=== PATIENT | male | born 1985 | race Caucasian/White ===

== ENCOUNTER 2019-08-27 13:34 | Emergency (ER) | payer OTHER ==
[2019-08-27] MEDS ORDERED: Baclofen 10 MG Tab PO ONE (14:07)
[2019-08-27] MEDS ORDERED: Acetaminophen 500 MG Tab PO ONE (14:07)
[2019-08-27] MEDS ORDERED: Cyclobenzaprine 10 MG Tab PO ONE (14:11)
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
== END 2019-08-27 15:12 | disposition home or self-care (01) ==
LOC: EDSEX → FB.ED 13:34
DX: S00.81XA Abrasion of other part of head, initial encounter (principal); S60.512A Abrasion of left hand, initial encounter; S40.211A Abrasion of right shoulder, initial encounter; S40.812A Abrasion of left upper arm, initial encounter; M54.5 Low back pain; M54.6 Pain in thoracic spine; V43.61XA Car passenger injured in collision with sport utility vehicle in traffic accident, initial encounter; Y92.410 Unspecified street and highway as the place of occurrence of the external cause
CPT/HCPCS: 99283; A9270